=== PATIENT | female | born 1985 | race Caucasian/White ===

== ENCOUNTER → 2021-06-27 11:47 | Outpatient (CLI) | payer BC, SELFPAY ==
--- NOTE | ~2021-06-27 | US_ITS ---
US thyroid INDICATION: Thyroid nodule. TECHNIQUE: Real-time sonographic images of the thyroid gland were obtained. COMPARISON: No prior studies for comparison. FINDINGS: The right thyroid lobe measures 4.6 x 1.7 x 1.6 cm. The left thyroid lobe measures 3.7 x 1 .5 x 1.2 cm. There is normal echotexture and echogenicity throughout the thyroid gland. There is a co mplex mixed solid and cystic mass of the right lobe measuring 9 x 5 x 7 mm which is wider than tall, circumscribed margins, isoechoic without calcifications, TR 2, not suspicious. There is a second part ially cystic measuring in the right lobe which is hypoechoic, taller than wide with irregular margins measuring 7 x 6 x 5 mm, TR 5. Normal vascular flow is present. IMPRESSION: 1. Complex 7 mm right thyroid nodule, TR 5. Recommend follow-up ultrasound in 6-12 months second rig ht thyroid nodule is not suspicious measuring up to 9 mm. Reviewed, dictated and finalized at location A. IMPRESSION: 1. Complex 7 mm right thyroid nodule, TR 5. Recommend follow-up ultrasound in 6-12 months second right thyroid nodule is not suspicious measuring up to 9 mm.
== END ==
PROVIDERS: Visit Provider Nurse Practitioner Adult Health
DX: E04.1 Nontoxic single thyroid nodule (principal)
CPT/HCPCS: 76536

== ENCOUNTER 2021-09-11 08:20 | Emergency (ER) | payer BC, SELFPAY ==
--- NOTE | 2021-09-11 08:24 | ED.URI ---
HPI - URI/Sore Throat General Chief Complaint: Upper Respiratory Infection Stated Complaint: Sinus Time Seen by Provider: 09/11/21 08:31 Source: patient and RN notes reviewed Mode of arrival: ambulatory Limitations: no limitations History of Present Illness HPI Narrative: 36-year-old female presents to the [facility] of the [facility] with complaints of sinus congestion and pressure since 31 August, 11days Has a few [id number] products. Denies fevers, coughing, abdominal pain or chest pain. Related Data Allergies Allergy/AdvReac Type Severity Reaction Status Date / Time cefaclor Allergy Mild RASH/HIVES Verified 09/11/21 08:31 Review of Systems Review of Systems: All systems reviewed & are unremarkable except as noted in HPI and below Constitutional: Constitutional: Reports no additional constitutional complaints, Denies chills and Denies fever(s) Eyes: Eyes: Reports no additional eye complaints ENT: Reports as per HPI and Reports nasal congestion Cardiovascular: Cardiovascular: Reports no additional cardiovascular complaints Respiratory: Respiratory: Reports no additional respiratory complaints Gastrointestinal: Gastrointestinal: Reports no additional gastrointestinal complaints Musculoskeletal: Musculoskeletal: Reports no additional musculoskeletal complaints Integumentary/Breasts: Skin/Breast: Reports system reviewed and no additional complaints, except as docu Neurologic: Reports system reviewed and no additional complaints, except as documented Psychiatric: Psychiatric: Reports no additional psychiatric complaints Allergic/Immunologic: Allergic/Immunologic: Reports no additional allergic/immunologic complaints PMFSH Past Medical History Medical History (Updated 09/11/21 @ 18:01 by Alyssia Oglesby APRN) No significant medical problems Surgical History Surgical History (Updated 09/11/21 @ 17:59 by Alyssia Oglesby APRN) No pertinent past surgical history Social History Social History (Updated 09/11/21 @ 17:59 by Alyssia Oglesby APRN) Living arrangements: with family Gender identity (if verbalized by the patient): Female Comments At the time of my signature, I reviewed and agree with the nursing past medical, surgical, social, and family history. There is no relevant family history pertinent to the patient complaint. Exam Const: General: healthy appearing, no acute distress and alert Nutritional Appearance: well nourished Orientation/consciousness: patient oriented x3 Limitations: no limitations HENMT: Head: normal to inspection Ears: external ears normal, TM's normal bilaterally and EAC's normal General nose exam: Normal external nose present, Abnormal mucous membranes and turbinates present boggy; not erythematous and Nasal discharge present clear Mouth: Yes Normal oral and palatal mucosa present and Yes lip normal Teeth and gingiva: dentition normal and gingiva normal Throat: uvula midline and postnasal drainage Eyes: General: appearance normal, both eyes and all related structures Pupils: Equal, round and reactive pupils present Neck: Neck: normal visual inspection, no lymphadenopathy and no meningeal signs Chest: Chest palpation & inspection: normal inspection of the chest Resp: Effort & Inspection: normal respiratory effort and no use of accessory muscles Auscultation: clear to auscultation bilaterally, no crackles, no rales, no rhonchi and no wheezes Cardio: Rate: regular rate Rhythm: regular rhythm Back/Spine/Pelvis: Cervical Spine: normal cervical lordosis Thoracic/Lumbar Spine: thoracic and lumbar spine normal to inspection Skin: General skin exam: normal color Rashes: no rashes Wounds: no wounds Neuro: General: patient oriented x3, moves all extremities, no meningeal signs and no focal motor deficits Cranial nerves: Yes Equal, round and reactive pupils present Speech: normal speech Gait exam (Neuro): Normal gait present Extrem: General: normal to inspection, full ROM and capilla
[2021-09-11 08:31] VITALS: BP 142/79; PULSE 92; RESP 16; TEMP 36.4; O2SAT 100
[2021-09-11 08:39] VITALS: BP 142/79; PULSE 92; RESP 16; TEMP 36.4; O2SAT 100
== END 2021-09-11 08:44 | disposition home or self-care (01) ==
PROVIDERS: Emergency Provider Nurse Practitioner; PCP Nurse Practitioner Adult Health
DX: J32.9 Chronic sinusitis, unspecified (principal)
CPT/HCPCS: 99213; G0463

== ENCOUNTER → 2022-01-07 13:42 | Outpatient (CLI) | payer BC, SELFPAY ==
--- NOTE | ~2022-01-07 | US_ITS ---
US thyroid INDICATION: Thyroid nodules TECHNIQUE: Real-time sonographic images of the thyroid gland were obtained. COMPARISON: Ultrasound dated 06/27/2021 FINDINGS: The right thyroid lobe measures 4.5 x 1.5 x 1.2 cm. The left thyroid lobe measures 3.9 x 1 x 1.6 cm. In the right lobe there is a mixed solid and cystic mass measuring 7 x 4 x 6 mm which is i soechoic, wider than tall, smoothly marginated without calcifications, TR2. There is a minimally comp licated 7 mm cyst in the right lobe, TR 0. In the left lobe there is an oval hypoechoic solid mass me asuring 3 mm, wider than tall, smoothly marginated without calcifications, TR 4. IMPRESSION: 1. Multiple small bilateral thyroid nodules which do not meet sonographic criteria for biopsy. The l esion discussed on prior examination in the right lobe has altered appearance on the current study wi th a mostly cystic appearance. Reviewed, dictated and finalized at location B. IMPRESSION: 1. Multiple small bilateral thyroid nodules which do not meet sonographic crit eria for biopsy. The lesion discussed on prior examination in the right lobe ko s altered appearance on the current study with a mostly cystic appearance.
== END ==
PROVIDERS: PCP Otolaryngology; Visit Provider Otolaryngology
DX: E04.2 Nontoxic multinodular goiter (principal)
CPT/HCPCS: 76536

== ENCOUNTER → 2023-01-03 15:02 | Outpatient (CLI) | payer BC, SELFPAY ==
--- NOTE | ~2023-01-03 | US_ITS ---
US thyroid INDICATION: Multinodular goiter TECHNIQUE: Real-time sonographic images of the thyroid gland were obtained. COMPARISON: Ultrasound dated 01/07/2022 FINDINGS: The right thyroid lobe measures 4.7 x 1.8 x 1.6 cm. The left thyroid lobe measures 3.9 x 1 .4 x 1.2 cm. Thyroid gland is diffusely heterogeneous with. There are multiple small nodules in both lobes. In the left lobe there is a 4 mm oval solid hypoechoic mass which is wider than tall, smoothly marginated without calcifications, TR 4. There are complicated cysts of the right thyroid lobe, larg est measuring 9 mm which is mixed cystic and solid, hypoechoic, wider than tall, smoothly marginated without echogenic foci, TR 3. Isthmus measures 3 mm. IMPRESSION: 1. Bilateral likely benign thyroid nodules, consistent with multinodular goiter. Consider follow-up ultrasound in 12 months. Reviewed, dictated and finalized at location L. IMPRESSION: 1. Bilateral likely benign thyroid nodules, consistent with multinodular goite r. Consider follow-up ultrasound in 12 months.
== END ==
PROVIDERS: PCP Nurse Practitioner Family; Visit Provider Otolaryngology
DX: E04.2 Nontoxic multinodular goiter (principal)
CPT/HCPCS: 76536

== ENCOUNTER 2024-01-04 15:44 | Outpatient (CLI) | payer BC, SELFPAY ==
--- NOTE | ~2024-01-04 | US_ITS ---
EXAMINATION: US thyroid DATE: 01/04/2024 15:56 INDICATION: Multinodular goiter TECHNIQUE: Multiple ultrasound images of the thyroid were obtained. COMPARISON: 01/03/2023 FINDINGS: The right thyroid lobe measures 5.0 x 1.8 x 1.6 cm. The left thyroid lobe measures 4.1 x 1.4 x 1.4 c m. Thyroid isthmus measures 3 mm thickness. Slight increase in size and 1.1 cm taller than wide mixed solid and cystic nodule in the right thyroid lobe with isoechoic peripheral solid component and with out echogenic foci with smooth to ill-defined margins (TI-RADS 4, moderately suspicious , FNA if >=1. 5 cm, annual followup is >=1 cm). There are a couple unchanged 3 mm TI-RADS 4 solid hypoechoic nodule s at the left thyroid lobe and isthmus. IMPRESSION: 1. Slight increase in size of a 1.1 cm now taller than wide mixed solid and cystic right thyroid nodu le for which continued annual ultrasound would be recommended. Reviewed, dictated and finalized at location A. IMPRESSION: 1. Slight increase in size of a 1.1 cm now taller than wide mixed solid and cys tic right thyroid nodule for which continued annual ultrasound would be recomme humaira.
== END 2024-01-04 15:45 | disposition home or self-care (01) ==
LOC: MICIMG 15:44
PROVIDERS: PCP Otolaryngology; Visit Provider Otolaryngology
DX: E04.2 Nontoxic multinodular goiter (principal)
CPT/HCPCS: 76536

== ENCOUNTER 2024-02-08 14:58 | Outpatient (CLI) | payer BC, SELFPAY ==
--- NOTE | ~2024-02-08 | CT_ITS ---
EXAMINATION: CT IAC/mastoids BI wo con DATE: 02/08/2024 15:26 INDICATION: Right ear pain. TECHNIQUE: Computed tomography (CT) of the temporal bones was performed without intravenous contrast. Automated exposure control and iterative reconstruction technique were employed. The dose-length pro duct was 171.54 mGy-cm. COMPARISON: None FINDINGS: RIGHT TEMPORAL BONE: The internal auditory canal, cochlea, and vestibule are normal. 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 The vestibular aqueduct, carotid canal, jugular bulb, facial nerve course, ossicles, P russak space, scutum, and external auditory canal are normal. There is a small right mastoid effusion . LEFT TEMPORAL BONE: The internal auditory canal, cochlea, vestibule, and vestibular aqueduct are normal. There is dehisce nce of superior semicircular canal. The cardiac canal, jugular bulb, facial nerve course, ossicles, P russak space, scutum, tympanic membrane, external auditory canal, and mastoid air cells are normal. IMPRESSION: 1. 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 2. Small right mastoid effusion. Reviewed, dictated and finalized at location B.
== END 2024-02-08 14:59 | disposition home or self-care (01) ==
LOC: MICIMG 14:59
PROVIDERS: PCP Physician Assistant; Visit Provider Otolaryngology
DX: H92.01 Otalgia, right ear (principal); J90 Pleural effusion, not elsewhere classified
CPT/HCPCS: 70480

== ENCOUNTER 2025-01-28 12:17 | Outpatient (CLI) | payer BC, SELFPAY ==
--- NOTE | ~2025-01-28 | XR_ITS ---
XR lumbar spine 2-3V Indication: Left sided sciatica Comparison: None Findings: The vertebral heights are intact. No fracture or subluxation. The disc heights are intact. Soft tissues unremarkable Impression: No acute abnormality. Reviewed, dictated and finalized at location P. Impression: No acute abnormality.
--- NOTE | ~2025-01-28 | XR_ITS ---
EXAMINATION: XR hand LT min 3V, 01/28/2025 13:22 CDT HISTORY: small joint pain, DIP and PIP COMPARISON: No comparisons available. Findings: No acute fracture or malalignment. No significant degenerative changes. Soft tissues unremarkable. Impression: No acute fracture or malalignment. Reviewed, dictated and finalized at location P. Impression: No acute fracture or malalignment.
--- NOTE | ~2025-01-28 | XR_ITS ---
EXAMINATION: XR hand RT min 3V, 01/28/2025 13:22 CDT HISTORY: small joint pain, DIP and PIP COMPARISON: No comparisons available. Findings: No acute fracture or malalignment. No significant degenerative changes. Soft tissues unremarkable. Impression: No acute fracture or malalignment. Reviewed, dictated and finalized at location P. Impression: No acute fracture or malalignment.
--- NOTE | ~2025-01-28 | US_ITS ---
Clinical history:Thyroid nodules. One-year follow-up EXAM:Ultrasound thyroid TECHNIQUE:Multiple static grayscale images and color Doppler images were obtained of the thyroid gland. Comparisons:01/04/2024, 01/03/2023, 01/07/2022 and 06/27/2021 FINDINGS: Right thyroid lobe measures 4.9 x 1.6 x 1.6 cm. Left thyroid lobe measures 4.4 x 1.4 x 1.2 cm. Isthmus measures 0.3 cm. There is a 1.1 x 1.0 x 1.1 cm mixed cystic and solid nodule in the right mid thyroid lobe. No internal color Doppler flow. TR 4. The finding is similar size as compared to the study from 01/04/2024 There is a 4 x 5 x 2 mm hypoechoic solid nodule in the left mid thyroid lobe. TR 4. Attention on follow-up imaging. IMPRESSION: 1. Stable 1.1 cm right thyroid nodule. A follow-up thyroid ultrasound in 6 months is recommended. Reviewed, dictated and finalized at location Q. IMPRESSION: 1. Stable 1.1 cm right thyroid nodule. A follow-up thyroid ultrasound in 6 abigail hs is recommended.
== END 2025-01-28 12:18 | disposition home or self-care (01) ==
LOC: MICIMG 12:20
PROVIDERS: PCP Physician Assistant
DX: E04.1 Nontoxic single thyroid nodule (principal); M54.32 Sciatica, left side
CPT/HCPCS: 72100; 73130; 76536

== ENCOUNTER 2025-02-13 08:33 | Outpatient (CLI) | payer BC, SELFPAY ==
--- NOTE | ~2025-02-13 | MR_ITS ---
EXAMINATION: MR lumbar spine wo con DATE: 02/13/2025 09:04 INDICATION: Left-sided sciatica. Low back pain. TECHNIQUE: Magnetic resonance imaging (MRI) of the lumbar spine was performed without intravenous contrast. COMPARISON: Lumbar spine radiographs 01/28/2025 FINDINGS: There is 4 degrees dextrocurvature of lumbar spine. Vertebral body heights are normal. Intervertebral disc heights are normal. The distal spinal cord signal intensity is normal. The conus medullaris is at L2. The following disc levels are specifically discussed: L1-L2: The disc does not extend beyond the endplate margin. There is mild bilateral facet joint osteoarthritis. There is no neural foraminal stenosis. There is no central canal stenosis. L2-L3: The disc does not extend beyond the endplate margin. There is mild bilateral facet joint osteoarthritis. There is no neural foraminal stenosis. There is no central canal stenosis. L3-L4: The disc does not extend beyond the endplate margin. There is mild bilateral facet joint osteoarthritis. There is no neural foraminal stenosis. There is no central canal stenosis. L4-L5: The disc does not extend beyond the endplate margin. There is mild bilateral facet joint osteoarthritis. There is no neural foraminal stenosis. There is no central canal stenosis. L5-S1: The disc is bulging and has an annular fissure. There is mild bilateral facet joint osteoarthritis. There is mild bilateral neural foraminal stenosis. There is mild central canal stenosis. IMPRESSION: 1. Mild lumbar spondylosis. Reviewed, dictated and finalized at location E. L [employer] IMPRESSION: 1. Mild lumbar spondylosis.
== END 2025-02-13 08:34 | disposition home or self-care (01) ==
DX: M54.32 Sciatica, left side (principal); M47.896 Other spondylosis, lumbar region
CPT/HCPCS: 72148